=== PATIENT | female | born 1950 | race Caucasian/White ===

== ENCOUNTER → 2024-10-29 14:10 | Outpatient (BNVA) | payer MEDICAID, MEDICARE, SELFPAY | PROVIDERS: Family Provider Family Medicine; PCP Family Medicine; Visit Provider Podiatrist Foot & Ankle Surgery | DX: M79.671 Pain in right foot (principal); M79.672 Pain in left foot; M25.572 Pain in left ankle and joints of left foot; M25.571 Pain in right ankle and joints of right foot; M21.41 Flat foot [pes planus] (acquired), right foot; M21.42 Flat foot [pes planus] (acquired), left foot; M76.822 Posterior tibial tendinitis, left leg; M76.821 Posterior tibial tendinitis, right leg; M19.072 Primary osteoarthritis, left ankle and foot; M19.071 Primary osteoarthritis, right ankle and foot; M20.11 Hallux valgus (acquired), right foot; M20.12 Hallux valgus (acquired), left foot | CPT/HCPCS: 73610; 73630; 99204 ==